=== PATIENT | male | born 1995 | race Two or more races ===

== ENCOUNTER 2021-12-17 10:23 | Emergency (ER) | payer SELFPAY ==
[~2021-12-17] VITALS: Ht 185.4 cm; Wt 93.0 kg
[2021-12-17 11:22] LABS: Urine Bacteria NONE SEEN /hpf (None Seen); Urine Blood Negative /uL (Negative); Urine Specific Gravity 1.023 (1.001-1.035); Urine WBC 2 /hpf (0 - 3)
[2021-12-17 11:31] LABS: Basophils # (auto) 0.1 10 ^3/uL (0-0.2); Basophils % (auto) 0.6 % (0.0-2.0); Eosinophils # (auto) 0.3 10 ^3/uL (0-0.8); Eosinophils % (auto) 3.8 % (0.0-7.0); Hematocrit 49.6 % (41.0-53.0); Hemoglobin 16.6 g/dL (13.5-17.5); Lymphocytes # (auto) 2.4 10 ^3/uL (0.4-5.4); Lymphocytes % (auto) 27.7 % (10.0-50.0); Mean Corpuscular Hgb Conc. 33.6 g/dL (32.0-36.0); Mean Corpuscular Volume 86.5 fL (80.0-100.0); Monocytes # (auto) 0.8 10 ^3/uL (0-1.3); Monocytes % (auto) 9.1 % (0.0-12.0); Neutrophils # (auto) 5.2 10 ^3/uL (1.6-8.6); Neutrophils % (auto) 58.8 % (37.0-80.0); Nucleated Red Blood Cells % 0.1 %; Red Blood Cells 5.74 10^6/uL (4.5-5.90); Red Cell Distribution Width 13.6 % (11.8-14.3); White Blood Cell 8.8 10^3/uL (4.4-10.8)
[2021-12-17 11:58] LABS: Albumin 3.8 g/dL (3.4-5.0); Calcium 9.1 mg/dL (8.5-10.1); Potassium 4.5 mmol/L (3.5-5.1)
[2021-12-17 12:01] LABS: BUN/Creatinine Ratio 13.5; Bilirubin, Total 0.6 mg/dL (0.2-1.0); Total Protein 7.2 g/dL (6.4-8.2)
[2021-12-17] MEDS ORDERED: PANT40TA2 PO (13:05)
[2021-12-17 13:21] VITALS: BP 128/73
== END 2021-12-17 13:21 | disposition home or self-care (01) ==
LOC: ER 10:23
DX: K29.70 Gastritis, unspecified, without bleeding (principal); F12.10 Cannabis abuse, uncomplicated
CPT/HCPCS: 36415; 74176; 80053; 81001; 83690; 85025

== ENCOUNTER 2022-08-06 23:11 | Emergency (ER) | payer SELFPAY ==
[~2022-08-06] VITALS: Ht 185.4 cm; Wt 88.9 kg
[~2022-08-06 23:11] MED LIST: PANT40TA2 PO
[2022-08-06 23:35] VITALS: BP 137/75
[2022-08-06] MEDS ORDERED: COROSUS EACH EAR (23:59)
== END 2022-08-07 00:21 | disposition home or self-care (01) ==
LOC: ER 23:11
DX: H60.91 Unspecified otitis externa, right ear (principal); F12.90 Cannabis use, unspecified, uncomplicated

== ENCOUNTER 2023-07-04 10:54 | Emergency (ER) | payer SELFPAY ==
[~2023-07-04] VITALS: Ht 185.4 cm; Wt 89.4 kg
[~2023-07-04 10:54] MED LIST changes: +COROSUS EACH EAR
[2023-07-04 12:09] LABS: Basophils # (auto) 0 10 ^3/uL (0-0.2); Basophils % (auto) 0.4 % (0.0-2.0); Eosinophils # (auto) 0 10 ^3/uL (0-0.8); Eosinophils % (auto) 0.3 % (0.0-7.0); Hematocrit 51.2 % (41.0-53.0); Lymphocytes # (auto) 1.8 10 ^3/uL (0.4-5.4); Lymphocytes % (auto) 16.8 % (10.0-50.0); Mean Corpuscular Hemoglobin 28.7 pg (28.0-32.0); Mean Corpuscular Hgb Conc. 33.1 g/dL (32.0-36.0); Mean Corpuscular Volume 86.5 fL (80.0-100.0); Monocytes # (auto) 0.6 10 ^3/uL (0-1.3); Monocytes % (auto) 5.5 % (0.0-12.0); Neutrophils # (auto) 8.1 10 ^3/uL (1.6-8.6); Nucleated Red Blood Cells % 0.2 %; Red Blood Cells 5.92 10^6/uL (4.5-5.90); Red Cell Distribution Width 13.6 % (11.8-14.3); White Blood Cell 10.5 10^3/uL (4.4-10.8)
[2023-07-04] MEDS: SODIUM CHLORIDE 0.9% 1,000 ML IV ONE (12:16)
[2023-07-04 12:24] LABS: INR 1.06 (0.9-1.15); Partial Thromboplastin Time 27.1 SEC (24.5-34.5); Prothrombin Time 11.2 sec (9.3-11.8)
[2023-07-04 12:25] LABS: Alanine Aminotransferase 36 U/L (7-40); Alkaline Phosphatase 77 U/L (46-116); Anion Gap 7 (5-15); Aspartate Aminotransferase 26 U/L (13-40); Blood Urea Nitrogen 9 mg/dL (9-23); Calcium 9.9 mg/dL (8.7-10.4); Carbon Dioxide 24 mmol/L (20-30); Chloride 107 mmol/L (98-107); Glucose 97 mg/dL (74-106); Lipase 44 U/L (12-53); Sodium 138 mmol/L (136-145)
[2023-07-04 12:26] LABS: Albumin 4.9 g/dL (3.2-4.8); Bilirubin, Total 0.6 mg/dL (0.2-1.0); Total Protein 7.5 g/dL (5.7-8.2)
[2023-07-04] MEDS: ONDANSETRON HCL 4 MG/2 ML VIAL IV ONE (12:30)
[2023-07-04] MEDS: PANTOPRAZOLE 80 MG in SODIUM CHL 0.9% 100 ML IV ONE (12:35)
[2023-07-04] MEDS: IOHEXOL 300 MG/ML 100ML BOTTLE IJ ONE (12:44)
[2023-07-04 13:26] LABS: Blood Alcohol 4.7 mg/dL (<10)
[2023-07-04 13:35] VITALS: BP 125/70; PULSE 64; RESP 18; TEMP 98.9; O2SAT 98
[2023-07-04] MEDS ORDERED: PANT40TA2 PO (13:41)
== END 2023-07-04 14:02 | disposition home or self-care (01) ==
LOC: ER 10:54
DX: R10.12 Left upper quadrant pain (principal); F15.90 Other stimulant use, unspecified, uncomplicated; Z79.899 Other long term (current) drug therapy
CPT/HCPCS: 36415; 74177; 80053; 80320; 83690; 83735; 85025; 85610; 85730; 96365; 96375; 99285; C9113; J2405; Q9967

== ENCOUNTER 2023-09-15 00:15 | Emergency (ER) | payer MEDICAID, OTHER ==
[~2023-09-15] VITALS: Ht 185.4 cm; Wt 88.6 kg
[2023-09-15 00:31] VITALS: BP 115/73; PULSE 80; RESP 18; O2SAT 96
== END 2023-09-15 01:28 | disposition left against medical advice (07) ==
LOC: ER 00:15
DX: S51.831A Puncture wound without foreign body of right forearm, initial encounter (principal); W55.01XA Bitten by cat, initial encounter; Y93.89 Activity, other specified; Y92.89 Other specified places as the place of occurrence of the external cause; Y99.8 Other external cause status; Z53.21 Procedure and treatment not carried out due to patient leaving prior to being seen by health care provider

== ENCOUNTER 2024-12-22 18:39 | Emergency (ER) | payer MEDICAID ==
[~2024-12-22] VITALS: Ht 185.4 cm; Wt 90.0 kg
[2024-12-22 18:40] VITALS: BP 146/93; PULSE 74; RESP 20; TEMP 97.3; O2SAT 98
--- NOTE | 2024-12-22 20:29 | DVH ---
CLINICAL INDICATION: left shoulder pain TECHNIQUE: 3 radiographic views of the left shoulder were obtained. Comparison: None FINDINGS/IMPRESSION: Normal bony alignment No fracture or dislocation. Small calcification superimposed over the left humeral head.
== END 2024-12-22 22:06 | disposition left against medical advice (07) ==
LOC: ER 18:39
DX: M25.512 Pain in left shoulder (principal); Z53.21 Procedure and treatment not carried out due to patient leaving prior to being seen by health care provider
CPT/HCPCS: 73030